=== PATIENT | male | born 1950 | race Caucasian/White ===

== ENCOUNTER 2021-09-02 07:56 | Day surgery (SDC) | payer MEDICARE, OTHER ==
[~2021-09-02 07:56] MED LIST: Lactated Ringers 1,000 ML IV SCH; Sodium Chloride 0.9% 10 ML Syringe FLUSH PRN
[2021-09-02] MEDS ORDERED: Lidocaine 2% Viscous Solution 15 ML Cup PO ONE (07:57)
[2021-09-02] MEDS ORDERED: Propofol 200 MG/20 ML SDV IV ONE (07:57)
[2021-09-02] MEDS ORDERED: Sodium Chloride 0.9% 10 ML Syringe FLUSH PRN (08:00)
[2021-09-02] MEDS: Lactated Ringers 1,000 ML IV SCH (08:43)
--- NOTE | 2021-09-02 09:49 | PCM.PN ---
- General Info Date of Service: 09/02/21 - Review of Systems Systems Review Comment:: 70 y/o male with recently diagnosed anemia here for EGD and Colonoscopy. He denies any abdominal pain or visible blood in stools. He is medically stable to proceed. His recent H and P is reviewed and no significant changes are noted. I have discussed the proposed EGD and Colonoscopy with the patient . Risks such as bleeding and GI injury discussed and he agrees to proceed. - Patient Data Vitals - Most Recent: Last Vital Signs Temp 97.7 F 09/02/21 08:28 Pulse 55 L 09/02/21 08:28 Resp 19 09/02/21 08:28 BP 141/58 H 09/02/21 08:28 Pulse Ox 98 09/02/21 08:28 Med Orders - Current: Current Medications Lactated Ringer's (Ringers, Lactated) 1,000 mls @ 125 mls/hr IV ASDIRECTED SOTERO Last Admin: 09/02/21 08:43 Dose: 125 mls/hr Documented by: Sodium Chloride (Sodium Chloride 0.9% 10 Ml Syringe) 10 ml FLUSH ASDIRECTED PRN PRN Reason: Keep Vein Open Discontinued Medications Lactated Ringer's (Ringers, Lactated) 1,000 mls @ 125 mls/hr IV ASDIRECTED SOTERO Sodium Chloride (Sodium Chloride 0.9% 10 Ml Syringe) 10 ml FLUSH ASDIRECTED PRN PRN Reason: Keep Vein Open Sepsis Event Note - Focused Exam Vital Signs: Vital Signs Temp Pulse Resp BP Pulse Ox 09/02/21 08:28 97.7 F 55 L 19 141/58 H 98 - Problem List Review Problem List Initiated/Reviewed/Updated: Yes - My Orders Last 24 Hours: My Active Orders 09/02/21 Breakfast Nothing Per Oral Diet [DIET] 09/02/21 08:00 Patient Status [ADT] Routine Patient to Empty Bladder [RC] ASDIRECTED Verify Patient Consent Obtain [RC] ASDIRECTED Lactated Ringers [Ringers, Lactated] 1,000 ml IV ASDIRECTED Sodium Chloride 0.9% [Saline Flush] 10 ml FLUSH ASDIRECTED PRN Peripheral IV Insertion Adult [OM.PC] Routine - Assessment Assessment:: Anemia - Plan Plan:: EGD and Colonoscopy
--- NOTE | 2021-09-02 11:03 | PCM.OPNOTE ---
- General Post-Op/Procedure Note Date of Surgery/Procedure: 09/02/21 Operative Procedure(s): EGD with Biopsy. 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 Colon Polyps. Cecal AV Malformations. Sigmoid Diverticulosis Anesthesia Technique: MAC Primary Surgeon: Keanu Llanos Pathology: Biopsies of Gastric Antrum Colon Polyps EBL in mLs: 2 Complications: None Condition: Good
[2021-09-02 11:58] VITALS: BP 139/66; PULSE 49
--- NOTE | 2021-09-02 13:55 | OR ---
DATE OF OPERATION: 09/02/2021 SURGEON: Keanu Llanos MD PREOPERATIVE DIAGNOSIS: Anemia. POSTOPERATIVE DIAGNOSES: 1. Gastritis. 2. Colon polyps. 3. Sigmoid diverticulosis. 4. Cecal arteriovenous malformations. INDICATIONS FOR SURGERY: This 70-year-old male was referred for upper and lower endoscopy. He has recently been diagnosed with unexplained anemia. He denies any GI symptoms. FINDINGS: On upper endoscopy, the patient has a mild degree of irritation of the gastric mucosa in the antrum near the pylorus. Mild inflammation with slight irregularity is noted, but no active bleeding is seen. No ulcers or other abnormalities were seen on upper endoscopy. On colonoscopy, no active bleeding is seen, although the patient is noted to have two AV malformations located in the cecum. The patient also has a total of six polyps. These are both semipedunculated and sessile in character. They range in size from 5 to 8 mm and are located in multiple locations in the sigmoid colon. Polyps are located at the 15, 25, 40, and 50 cm levels. There is also a polyp located in the mid transverse colon and a sixth polyp at the hepatic flexure. The patient also has a moderate degree of diverticulosis in the sigmoid region which appears uncomplicated. PROCEDURE: The patient was taken to the procedure room. He was given intravenous sedation and with him in the left lateral decubitus position, the Olympus gastroscope was advanced through a mouth guard into the oral cavity. Under direct visualization, the scope was advanced through the oropharynx into the esophagus and then down through the esophagus, stomach, and into the duodenum where examination to the third portion was performed. The duodenum was carefully examined and the scope was withdrawn back into the stomach, where full examination including retroflexed examination of the fundus was performed. Mild irritation was noted in the gastric antrum near the pylorus and biopsies of this area were taken to rule out H pylori. The GE junction and esophagus were then re-examined as the scope was removed. Attention was turned to colonoscopy. Digital rectal exam was performed showing no rectal masses. The Olympus colonoscope was inserted into the rectum. Retroflexed examination of the rectal canal was performed. The scope was then carefully advanced under direct visualization through the entire length of the colon until the cecum was reached. Cecal acquisition was confirmed by noting the normal internal cecal anatomy including appendiceal orifice and the ileocecal valve. After examining the cecum, the scope was slowly withdrawn sequentially re-examining the colonic segments until the entire colon and rectum had been fully examined. During insertion and withdrawal of the scope, the above-described six polyps were identified. Each of these was removed with a cautery snare and retrieved and will be submitted for pathology. The AV malformations in the cecum were viewed, but were not treated during the procedure today. After the exam had been completed and with no sign of any complication, the scope was removed and the patient was taken from the procedure room in satisfactory condition. ESTIMATED BLOOD LOSS: 2 mL. COMPLICATIONS: None. PROGNOSIS: Good. /[id number] [facility]
== END 2021-09-02 11:45 | disposition home or self-care (01) ==
LOC: FB.SDS 07:56
PROVIDERS: ATTEND Surgery
DX: D12.5 Benign neoplasm of sigmoid colon (principal); D12.3 Benign neoplasm of transverse colon; D64.9 Anemia, unspecified; K57.30 Diverticulosis of large intestine without perforation or abscess without bleeding; Q27.33 Arteriovenous malformation of digestive system vessel; K29.50 Unspecified chronic gastritis without bleeding; K31.89 Other diseases of stomach and duodenum; Z79.899 Other long term (current) drug therapy; Z79.01 Long term (current) use of anticoagulants; Z88.8 Allergy status to other drugs, medicaments and biological substances; Z91.013 Allergy to seafood
CPT/HCPCS: 00813-QZ; 88305; 88342; A9270-GY; J2704; J7120

== ENCOUNTER 2025-06-18 02:17 | Emergency (ER) | payer MEDICARE, OTHER ==
[2025-06-18] MEDS: Lidocaine 2% HCl 6 ML Jel ONE (02:38)
[2025-06-18 03:30] LABS: MEAN PLATELET VOLUME 8.4 fL (6.7-11.0); PLATELET COUNT,PLT 188 x10(3)uL (117-477); RED BLOOD CELL COUNT 4.27 x10(6)uL (3.90-5.90); RED CELL DISTRIBUTION WIDTH 14.4 % (12.4-15.0); WHITE BLOOD CELL COUNT,WBC 13.3 x10-3/uL (3.2-10.1)
[2025-06-18 03:42] LABS: BLOOD UREA NITROGEN,BUN 25 mg/dL (7-18); CARBON DIOXIDE,CO2 27 mmol/L (21-32); CHLORIDE,CL 105 mmol/L (100-110); CREATININE 1.7 mg/dL (0.70-1.30); EST CRCL DRUG DOSING (CG) 44.39 mL/min; ESTIMATED GFR 42 mL/min (>60); GLUCOSE RANDOM 139 mg/dL (80-116); POTASSIUM,K 5.5 mmol/L (3.5-5.3); SODIUM,NA 136 mmol/L (135-145)
[2025-06-18 03:48] LABS: A/G RATIO 0.8; ALANINE AMINOTRANSFERASE,ALT 22 U/L (12-36); ASPARTATE AMNIOTRANSFERASE,AST 23 IU/L (5-25); BILIRUBIN TOTAL 0.8 mg/dL (0.1-1.3); PROTEIN TOTAL,TP 7.0 g/dL (6.0-8.0)
[2025-06-18 04:05] LABS: LYMPHOCYTES PERCENT MAN 8 % (13-37); MONOCYTES PERCENT MAN 2 % (4-12); SEG NEUTROPHILS PERCENT MAN 90 % (46-82)
[2025-06-18 04:34] LABS: GLUCOSE,URINE NORMAL (NORMAL); OCCULT BLOOD,URINE LARGE (NEGATIVE)
[2025-06-18 04:40] LABS: APPEARANCE,URINE TURBID (CLEAR)
== END 2025-06-18 05:35 | disposition home or self-care (01) ==
LOC: MERGE 02:17 → FB.ED 02:17
DX: N39.0 Urinary tract infection, site not specified (principal); R31.0 Gross hematuria; I10 Essential (primary) hypertension; I48.91 Unspecified atrial fibrillation; F17.210 Nicotine dependence, cigarettes, uncomplicated; Z79.01 Long term (current) use of anticoagulants; Z88.1 Allergy status to other antibiotic agents; Z88.8 Allergy status to other drugs, medicaments and biological substances; Z91.013 Allergy to seafood
CPT/HCPCS: 36415; 51702; 80053; 81001; 83735; 85025; 87086; 99283; 99284; A9270-GY